=== PATIENT | female | born 1985 | race Caucasian/White ===

== ENCOUNTER 2017-03-12 06:32 | Emergency (ER) | payer OTHER ==
[~2017-03-12] VITALS: Ht 162.6 cm; Wt 68.0 kg
[~2017-03-12 06:32] MED LIST: ACET325 PO; CIPR500 PO; Cleocin HCl300 MG PO; HYDACE5 PO; IBUP800 PO; Naprosyn500 MG PO; PHENA200 PO; PROM25 PO; URICALM; Verotin-Gr Cap1 EACH PO
[2017-03-12] MEDS ORDERED: AZIT250 PO (06:57)
[2017-12-18] MEDS ORDERED: Sudogest30 MG PO (11:09)
[2018-01-19] MEDS ORDERED: COMPAZINE10 MG PO (17:39)
== END 2017-03-12 07:10 | disposition home or self-care (01) ==
LOC: ER 06:32
DX: H66.92 Otitis media, unspecified, left ear (principal); Z88.0 Allergy status to penicillin; Z79.2 Long term (current) use of antibiotics
CPT/HCPCS: 99282

== ENCOUNTER 2017-08-11 15:48 | Emergency (ER) | payer OTHER ==
[~2017-08-11] VITALS: Ht 162.6 cm; Wt 68.0 kg
[~2017-08-11 15:48] MED LIST changes: +AZIT250 PO
[2017-08-11] MEDS ORDERED: KETO15TC TOP (17:01)
[2017-08-11] MEDS ORDERED: PSEU120ER PO (17:01)
== END 2017-08-11 17:05 | disposition home or self-care (01) ==
LOC: ER 15:48
DX: H69.91 Unspecified Eustachian tube disorder, right ear (principal); Z88.0 Allergy status to penicillin; Z79.899 Other long term (current) drug therapy; F17.210 Nicotine dependence, cigarettes, uncomplicated; B35.3 Tinea pedis
CPT/HCPCS: 99282

== ENCOUNTER 2017-08-18 17:52 | Emergency (ER) | payer OTHER ==
[~2017-08-18] VITALS: Ht 162.6 cm; Wt 68.0 kg
[~2017-08-18 17:52] MED LIST changes: +KETO15TC TOP; +PSEU120ER PO
[2017-08-18] MEDS ORDERED: Keflex500 MG PO (18:36)
== END 2017-08-18 18:44 | disposition home or self-care (01) ==
LOC: ER 17:52
DX: H72.91 Unspecified perforation of tympanic membrane, right ear (principal); Z88.0 Allergy status to penicillin; F17.200 Nicotine dependence, unspecified, uncomplicated
CPT/HCPCS: 99282

== ENCOUNTER 2018-04-09 14:25 | Emergency (ER) | payer OTHER ==
[~2018-04-09] VITALS: Ht 162.6 cm; Wt 68.0 kg
[~2018-04-09 14:25] MED LIST changes: +COMPAZINE10 MG PO; +Keflex500 MG PO; +Sudogest30 MG PO
[2018-04-09] MEDS ORDERED: IBUP800 PO (15:06)
== END 2018-04-09 15:14 | disposition home or self-care (01) ==
LOC: ER 14:25
DX: S83.005A Unspecified dislocation of left patella, initial encounter (principal); W22.8XXA Striking against or struck by other objects, initial encounter; Z88.0 Allergy status to penicillin; F17.210 Nicotine dependence, cigarettes, uncomplicated
CPT/HCPCS: 29505; 73562-LT; 99283-25

== ENCOUNTER 2018-06-19 07:08 | Emergency (ER) | payer OTHER ==
[~2018-06-19] VITALS: Ht 162.6 cm; Wt 69.8 kg
[2018-06-19 07:42] LABS: Source, Urine Clean Catch
[2018-06-19 07:46] LABS: BASOPHILS ABSOLUTE AUTO 0.04 K/mm3 (0.00-0.23); BASOPHILS PERCENT AUTO 1 % (0-2); EOSINOPHILS ABSOLUTE AUTO 0.08 K/mm3 (0.00-0.68); EOSINOPHILS PERCENT AUTO 1 % (0-6); Hematocrit 45.1 % (33.0-51.0); Hemoglobin 15.4 g/dL (11.5-16.0); IMMATURE GRAN ABSOLUTE AUTO 0.02 K/mm3 (0.00-0.10); IMMATURE GRAN PERCENT AUTO 0 % (0-1); LYMPHOCYTES ABSOLUTE AUTO 1.37 K/mm3 (0.84-5.20); LYMPHOCYTES PERCENT AUTO 24 % (21-46); MONOCYTES ABSOLUTE AUTO 0.91 K/mm3 (0.16-1.47); MONOCYTES PERCENT AUTO 16 % (4-13); Mean Corpuscular HGB 29.8 pg (26.0-34.0); Mean Corpuscular HGB Conc 34.1 g/dL (31.5-36.5); Mean Corpuscular Volume 87 fL (80-100); Mean Platelet Volume 10.1 fL (9.1-12.4); NEUTROPHILS ABSOLUTE AUTO 3.27 K/mm3 (1.96-9.15); NEUTROPHILS PERCENT AUTO 57 % (41-73); Platelet Count 294 K/mm3 (150-400); RDW Coefficient Variation 12.5 % (11.7-14.2); RDW Standard Deviation 39.8 fL (35.1-46.3); Red Blood Cell Count 5.17 M/mm3 (3.80-5.20); White Blood Cell Count 5.69 K/mm3 (4.00-11.30)
[2018-06-19 07:59] LABS: Alanine Aminotransfer (ALT/SGP 79 U/L (12-78); Albumin, Blood 3.3 g/dL (3.4-5.0); Alk Phos 89 U/L (50-136); Anion Gap 8 mmol/L (6-16); Aspartate Aminotrans (AST/SGOT 50 U/L (12-37); Bilirubin, Total 0.2 mg/dL (0.1-1.0); Blood Urea Nitrogen 10 mg/dL (8-24); CO2, Blood 24 mmol/L (21-32); Calcium, Blood 8.2 mg/dL (8.5-10.1); Chloride, Blood 108 mmol/L (98-108); Creatinine, Blood 0.77 mg/dL (0.40-1.00); Globulin, Blood 3.2 g/dL (2.2-4.0); Glomerular Filtration Rate >60 (60-); Glucose, Blood 92 mg/dL (70-99); Potassium, Blood 3.8 mmol/L (3.5-5.5); Sodium, Blood 140 mmol/L (136-145); Total Protein, Blood 6.5 g/dL (6.4-8.2)
[2018-06-19 08:07] LABS: Bilirubin, Urine Neg (Neg); Blood, Urine 1+ (Neg); Glucose Qualitative, Urine Neg (Neg); Ketones, Urine Neg (Neg); Leukocyte Esterase, Urine 1+ (Neg); Nitrite, Urine Neg (Neg); Protein, Urine 1+ (Neg); Specific Gravity, Urine 1.015 (1.003-1.022); Urobilinogen, Urine NORM (Normal)
[2018-06-19 08:35] LABS: Appearance, Urine Cloudy (Clear); Color, Urine Yellow (P-Yellow)
[2018-06-19 08:37] LABS: Squamous Epithelial Cells Many /hpf (Few)
[2018-06-19 08:38] LABS: Bacteria Mod /hpf; Red Blood Cells, Urine 0-2 /hpf (0-2)
[2018-06-19] MEDS ORDERED: PROM25 PO (08:56)
== END 2018-06-19 09:10 | disposition home or self-care (01) ==
LOC: ER 07:08
PROVIDERS: Physician Assistant
DX: R11.2 Nausea with vomiting, unspecified (principal); R19.7 Diarrhea, unspecified; Z88.0 Allergy status to penicillin; F17.210 Nicotine dependence, cigarettes, uncomplicated
CPT/HCPCS: 36415; 80053; 81001; 81025; 83690; 85025; 87086; 96361; 96374; 96375; 99284-25; J2550; J7120

== ENCOUNTER 2018-08-05 11:21 | Emergency (ER) | payer OTHER ==
[~2018-08-05] VITALS: Ht 162.6 cm; Wt 70.3 kg
[2018-08-05] MEDS ORDERED: Sudogest60 MG PO (12:01)
[2018-08-05] MEDS ORDERED: CEFD300 PO (12:01)
== END 2018-08-05 12:13 | disposition home or self-care (01) ==
LOC: ER 11:21
DX: H66.93 Otitis media, unspecified, bilateral (principal); R09.81 Nasal congestion; Z88.0 Allergy status to penicillin; F17.210 Nicotine dependence, cigarettes, uncomplicated
CPT/HCPCS: 99282

== ENCOUNTER → 2018-08-17 | Outpatient (CLI) | payer OTHER ==
[~2018-08-17] MED LIST changes: +CEFD300 PO; +Sudogest60 MG PO
== END | disposition home or self-care (01) ==
LOC: LAB 15:47 → LAB SHORT 15:47 → EDSTATUS 08-18 11:25 → LAB FUT 08-18 11:25
DX: B19.20 Unspecified viral hepatitis C without hepatic coma (principal)
CPT/HCPCS: 81025

== ENCOUNTER → 2018-08-25 | Outpatient (CLI) | payer OTHER ==
[2018-08-27 14:06] LABS: HPV 16 Positive (Negative); HPV 18 Negative (Negative); HPV OTHER HR TYPES Negative (Negative)
== END | disposition home or self-care (01) ==
LOC: LAB SHORT 18:02 → LAB 18:02
PROVIDERS: Obstetrics & Gynecology
DX: Z01.419 Encounter for gynecological examination (general) (routine) without abnormal findings (principal)
CPT/HCPCS: 87624; G0123

== ENCOUNTER → 2018-09-15 | Outpatient (CLI) | payer OTHER | END | disposition home or self-care (01) | LOC: LAB SHORT 07:56 → PLD 07:56 | DX: N87.9 Dysplasia of cervix uteri, unspecified (principal) | CPT/HCPCS: 88305 ==

== ENCOUNTER 2022-10-13 14:57 | Emergency (ER) | payer OTHER ==
[~2022-10-13] VITALS: Ht 165.1 cm; Wt 59.0 kg
[2022-10-13 15:19] VITALS: BP 155/90
== END 2022-10-13 15:20 | disposition home or self-care (01) ==
LOC: ER 14:57
DX: J34.89 Other specified disorders of nose and nasal sinuses (principal); T75.89XA Other specified effects of external causes, initial encounter; F17.210 Nicotine dependence, cigarettes, uncomplicated; Z88.0 Allergy status to penicillin
CPT/HCPCS: 99282

== ENCOUNTER 2023-02-03 17:14 | Emergency (ER) | payer OTHER ==
[~2023-02-03] VITALS: Ht 162.6 cm; Wt 61.2 kg
[2023-02-03 18:22] VITALS: BP 146/97
== END 2023-02-03 19:20 | disposition left against medical advice (07) ==
LOC: ER 17:14
DX: S61.211A Laceration without foreign body of left index finger without damage to nail, initial encounter (principal); F17.210 Nicotine dependence, cigarettes, uncomplicated; Z88.0 Allergy status to penicillin; W26.0XXA Contact with knife, initial encounter; Y93.G1 Activity, food preparation and clean up
CPT/HCPCS: 99282

== ENCOUNTER 2023-08-05 17:28 | Emergency (ER) | payer OTHER ==
[~2023-08-05] VITALS: Ht 167.6 cm; Wt 68.0 kg
[2023-08-05 17:41] VITALS: BP 162/110
[2023-08-05] MEDS ORDERED: Lidocaine 4% 1 Patch TOP ONE (19:00)
[2023-08-05] MEDS ORDERED: Ketorolac Tromethamine 10 MG Tab PO ONE (19:00)
== END 2023-08-05 19:22 | disposition home or self-care (01) ==
LOC: ER 17:28
DX: G89.18 Other acute postprocedural pain (principal); M54.9 Dorsalgia, unspecified; M51.36 Other intervertebral disc degeneration, lumbar region; F17.210 Nicotine dependence, cigarettes, uncomplicated; W01.190A Fall on same level from slipping, tripping and stumbling with subsequent striking against furniture, initial encounter; Z88.0 Allergy status to penicillin
CPT/HCPCS: 72100; 99283-25; A9270

== ENCOUNTER 2023-08-23 14:22 | Emergency (ER) | payer OTHER ==
[~2023-08-23] VITALS: Ht 162.6 cm; Wt 65.8 kg
[2023-08-23] MEDS ORDERED: Diphth,Pertuss(Acell),Tet Vac 0.5 ML VIAL IM ONE (14:35)
[2023-08-23 15:07] VITALS: BP 165/90
== END 2023-08-23 15:24 | disposition home or self-care (01) ==
LOC: ER 14:22
DX: S61.411A Laceration without foreign body of right hand, initial encounter (principal); F17.210 Nicotine dependence, cigarettes, uncomplicated; W26.0XXA Contact with knife, initial encounter
CPT/HCPCS: 12002; 90471; 90715; 99282-25

== ENCOUNTER → 2024-03-10 | Outpatient (CLI) | payer OTHER ==
[2024-03-10 09:34] LABS: BASOPHILS ABSOLUTE AUTO 0.07 K/mm3 (0.00-0.23); BASOPHILS PERCENT AUTO 1 % (0-2); EOSINOPHILS ABSOLUTE AUTO 0.17 K/mm3 (0.00-0.68); EOSINOPHILS PERCENT AUTO 3 % (0-6); Hematocrit 41.9 % (33.0-51.0); Hemoglobin 14.5 g/dL (11.5-16.0); IMMATURE GRAN ABSOLUTE AUTO 0.01 K/mm3 (0.00-0.10); IMMATURE GRAN PERCENT AUTO 0 % (0-1); LYMPHOCYTES ABSOLUTE AUTO 1.67 K/mm3 (0.84-5.20); LYMPHOCYTES PERCENT AUTO 29 % (21-46); MONOCYTES ABSOLUTE AUTO 0.39 K/mm3 (0.16-1.47); MONOCYTES PERCENT AUTO 7 % (4-13); Mean Corpuscular HGB 31.9 pg (26.0-34.0); Mean Corpuscular HGB Conc 34.6 g/dL (31.5-36.5); Mean Corpuscular Volume 92 fL (80-100); Mean Platelet Volume 9.8 fL (9.1-12.4); NEUTROPHILS ABSOLUTE AUTO 3.54 K/mm3 (1.96-9.15); NEUTROPHILS PERCENT AUTO 61 % (41-73); Platelet Count 303 K/mm3 (150-400); RDW Coefficient Variation 12.4 % (11.7-14.2); RDW Standard Deviation 41.9 fL (35.1-46.3); Red Blood Cell Count 4.55 M/mm3 (3.80-5.20); White Blood Cell Count 5.85 K/mm3 (4.00-11.30)
[2024-03-10 09:54] LABS: Alanine Aminotransfer (ALT/SGP 22 U/L (12-78); Albumin/Globulin Ratio 1.2 (0.8-1.8); Alk Phos 56 U/L (50-136); Anion Gap 9 mmol/L (3-11); Aspartate Aminotrans (AST/SGOT 19 U/L (12-37); Beta HCG, Quantitative, Serum <1 mIU/mL (0-3); Bilirubin, Total 0.5 mg/dL (0.1-1.0); Blood Urea Nitrogen 12 mg/dL (8-24); Bun/Creatinine Ratio 18.3 (12.0-20.0); CHOL/HDL RATIO 1.6; CO2, Blood 25 mmol/L (21-32); Chloride, Blood 109 mmol/L (98-108); Cholesterol 212 mg/dL (50-200); Creatinine, Blood 0.66 mg/dL (0.40-1.00); Globulin, Blood 3.4 g/dL (2.2-4.0); Glomerular Filtration Rate 117 (60-); Glucose, Blood 91 mg/dL (70-99); HDL Cholesterol 130 mg/dL (>39); LDL/HDL RATIO 0.5; Low Density Lipoprotein Chol 69 mg/dL (0-110); Sodium, Blood 139 mmol/L (136-145); Thyroid Stimulating Hormone 0.797 uIU/mL (0.360-4.800); Total Protein, Blood 7.4 g/dL (6.4-8.2); Triglycerides 64 mg/dL (30-140); Very Low Density Lipoprot Chol 12 mg/dL (6-28)
[2024-03-11 18:39] LABS: HIV 1,2 COMBO ANTIGEN/ANTIBODY Negative (Negative)
[2024-03-12 09:18] LABS: HCV QNT BY NAAT (IU/ML) Not Detected; HCV QNT BY NAAT (LOG IU/ML) Not Detected; HCV QNT BY NAAT INTERP Not Detected (Not Detected)
== END ==
LOC: LAB SHORT 08:01 → LAB 08:01
PROVIDERS: Nurse Practitioner Family
DX: R11.2 Nausea with vomiting, unspecified (principal)
CPT/HCPCS: 80053; 80061; 84443; 84702; 85025; 87389; 87522